=== PATIENT | male | born 1990 | race Caucasian/White ===

== ENCOUNTER 2019-01-23 04:12 | Emergency (ER) | payer SELFPAY ==
[~2019-01-23] VITALS: Ht 185.4 cm; Wt 81.6 kg
--- NOTE | 2019-01-23 04:26 | NUR ---
ED Nurse Note: pt walked in c/o bleeding in his mouth x 1 hr, pt denies any oral trauma but states he took a pill of cadence today. noted dried blood and blood in pt's mouth, pt gargled with water, noted small bleeding site on the right side of the tongue. will cont monitor. ermd at the bedside.
[2019-01-23 04:27] VITALS: BP 172/83
[2019-01-23] MEDS ORDERED: Lidocaine 1% 10mg/ml/EPI 0.01mg/ml 20ml INJ ONE (04:32)
--- NOTE | 2019-01-23 04:44 | Emergency Room Report ---
History of Present Illness General Chief Complaint: General Complaint Source: Patient Present Illness HPI This is a 28-year-old male with no past medical history. He presents with chief complaint of bleeding from his mouth. Onset about an hour ago. He said he went drinking with his friend and took one mildly. He woke up and he has bleeding on his mouth. He said he coughed up some clots. No fever chills but no nausea no vomiting. He could not tell where the bleeding is coming from. He denies any other injury. He did say that he took like for regular size aspirin today for inflammation. Allergies: Coded Allergies: No Known Allergies (Unverified , 01/23/19) Patient History Past Medical History: see triage record, old chart reviewed Past Surgical History: none Pertinent Family History: none Social History: Reports: alcohol use, drug use Immunizations: other Reviewed Nursing Documentation: PMH: Agreed; PSxH: Agreed Nursing Documentation-PMH Past Medical History: No Stated History Review of Systems Eye: Denies: eye pain, blurred vision ENT: Denies: ear pain, nose congestion, throat swelling Respiratory: Denies: cough, shortness of breath Cardiovascular: Denies: chest pain, palpitations Gastrointestinal: Denies: abdominal pain, diarrhea, nausea, vomiting Musculoskeletal: Denies: back pain, joint pain Skin: Denies: rash Neurological: Denies: headache, numbness Endocrine: Denies: increased thirst, increased urine Hematologic/Lymphatic: Denies: easy bruising All Other Systems: negative except mentioned in HPI Physical Exam Vital Signs Date Time Temp Pulse Resp B/P (MAP) Pulse Ox O2 Delivery O2 Flow Rate FiO2 01/23/19 04:14 98.1 98 18 172/83 (112) 96 Room Air Vitals with high blood pressure Sp02 EP Interpretation: reviewed, normal General Appearance: well appearing, no apparent distress, alert Head: normocephalic, atraumatic Eyes: bilateral eye PERRL, bilateral eye EOMI ENT: hearing grossly normal, normal pharynx, other - There is a small arteriole bleed lateral aspect of his I see no other injury or bleeding. Neck: full range of motion, supple, no meningismus Respiratory: chest non-tender, lungs clear, normal breath sounds Cardiovascular #1: regular rate, rhythm, no murmur Gastrointestinal: normal bowel sounds, non tender, no mass, no organomegaly, no bruit, non-distended Musculoskeletal: back normal, normal range of motion, gait/station normal Psychiatric: mood/affect normal Procedures Laceration/Wound Repair Laceration/Wound Repair : Consent: Verbal Wound Location: other - Tongue Wound's Depth, Shape: superficial Wound Length (cm): 0 Wound Explored: clean Anesthesia: Lidocaine w/ Epi Volume Anesthetic (ccs): 1 Suture Size/Type: 5:0, other - vicryl Number of Sutures: 2 Patient Tolerated: Well Complications: None Progress Initially I placed 1 suture but he still was bleeding and oozing from the wound. I then placed a pursestring suture and that stopped the bleeding. Medical Decision Making Diagnostic Impression: Primary Impression: Laceration of tongue Qualified Codes: S01.512A - Laceration without foreign body of oral cavity, initial encounter Additional Impression: Substance abuse ER Course Patient with a tongue laceration. His bleeding is probably secondary to minor trauma and elevated blood pressure from substance abuse. Also from taking for full-strength aspirin today. Bleeding controlled. Will discharge home. Last Vital Signs Date Time Temp Pulse Resp B/P (MAP) Pulse Ox O2 Delivery O2 Flow Rate FiO2 01/23/19 04:27 98 18 Room Air 01/23/19 04:27 98.1 172/83 96 Status: improved Disposition: HOME, SELF-CARE Condition: Stable Additional Instructions: Abstain from drugs and alcohol. Stop taking aspirin. Follow-up with your doctor in 7 days. Suture will fall off. Return if worse. Darwin Moreno MD Jan 23, 2019 04:44
--- NOTE | 2019-01-23 04:59 | NUR ---
ED Nurse Note: pt cleared to be d/c per ERMD, noted bleeding stopped, pt education done, pt states he will uber back home, pt ambulatory w/ steady gait, pt left w/o signing paper and without paperwork.
[2019-01-23 05:00] VITALS: BP 165/83
== END 2019-01-23 05:00 | disposition home or self-care (01) ==
LOC: EMR 04:26
DX: S01.512A Laceration without foreign body of oral cavity, initial encounter (principal); F19.10 Other psychoactive substance abuse, uncomplicated; X58.XXXA Exposure to other specified factors, initial encounter; Y92.9 Unspecified place or not applicable
CPT/HCPCS: 99283